=== PATIENT | female | born 1980 ===

== ENCOUNTER 2019-03-31 15:15 | Emergency (ER) | payer OTHER ==
[~2019-03-31] VITALS: Ht 160 cm; Wt 68.5 kg
[2019-03-31] MEDS ORDERED: NKM (15:27)
[2019-03-31] MEDS ORDERED: ALPRAZolam 0.25mg tab ORAL ONE (16:15)
[2019-03-31] MEDS ORDERED: ALPRAZolam 0.5mg tab ORAL ONE (16:15)
[2019-03-31] MEDS ORDERED: ALPRAZOLAM0.25 MG ORAL (16:18)
--- NOTE | 2019-03-31 16:18 | Emergency Room Report ---
History of Present Illness General Chief Complaint: General Complaint Source: Patient Present Illness HPI 38-year-old female presents to the emergency department requesting medication refill for Xanax that she takes for anxiety intermittently and as needed. Patient reports that she has not needed to take some several months however she is under a lot of stress and starting a new job and had severe anxiety this a.m. that she was unable to control on her own. Patient is in the process of establishing herself with a new psychiatrist in this area. Patient denies SI/HI , amanda, delusions, history of previous hospitalizations or PSAs. Patient denies illicit drug use. Patient reports during anxiety attack she feels overwhelmed, emotional and hyperventilates. Patient denies chest pain, palpitations or pain with breathing. Patient denies syncope or loss of consciousness she denies significant past medical history such as cardiac, liver , TBI, diabetes. Patient denies suspicion of at this time she denies fevers or chills she denies recent illnesses/infections. She denies diaphoresis , significant changes in weight or insomnia. Denies new meds or supplements. Patient is requesting small quantity to be used as needed until she follows up. Allergies: Coded Allergies: No Known Allergies (Unverified , 03/31/19) Patient History Past Medical History: see triage record Past Surgical History: none Pertinent Family History: none Last Menstrual Period: Mar 21, 2019 Now: No Reviewed Nursing Documentation: PMH: Agreed; PSxH: Agreed Nursing Documentation-PMH Past Medical History: No History, Except For Hx Cardiac Problems: No - anxiety Review of Systems All Other Systems: negative except mentioned in HPI Physical Exam Vital Signs Date Time Temp Pulse Resp B/P (MAP) Pulse Ox O2 Delivery O2 Flow Rate FiO2 03/31/19 15:23 98.2 79 17 118/68 (85) 96 Room Air Sp02 EP Interpretation: reviewed, normal General Appearance: no apparent distress, alert, GCS 15, non-toxic Head: normocephalic, atraumatic Eyes: bilateral eye normal inspection, bilateral eye PERRL ENT: hearing grossly normal, normal voice Neck: full range of motion Respiratory: lungs clear, normal breath sounds, no respiratory distress, no accessory muscle use, no wheezing, speaking full sentences Cardiovascular #1: regular rate, rhythm, no edema, normal capillary refill Gastrointestinal: non tender, soft, non-distended, no guarding Musculoskeletal: gait/station normal, normal range of motion, non-tender Neurologic: alert, oriented x3, responsive, motor strength/tone normal, sensory intact, normal gait, speech normal, grossly normal Psychiatric: judgement/insight normal, no suicidal/homicidal ideation, no delusions, anxious Lymphatic: no adenopathy Medical Decision Making PA Attestation Dr. Green is my supervising Physician whom patient management has been discussed with. Diagnostic Impression: Primary Impression: Medication refill ER Course 38-year-old female presents to the emergency department requesting medication refill for Xanax that she takes for anxiety intermittently and as needed. Patient reports that she has not needed to take some several months however she is under a lot of stress and starting a new job and had severe anxiety this a.m. that she was unable to control on her own. Patient is in the process of establishing herself with a new psychiatrist in this area. Patient denies SI/HI , amanda, delusions, history of previous hospitalizations or PSAs. Patient denies illicit drug use. Patient reports during anxiety attack she feels overwhelmed, emotional and hyperventilates. Patient denies chest pain, palpitations or pain with breathing. Patient denies syncope or loss of consciousness she denies significant past medical history such as cardiac, liver , TBI, diabetes. Patient denies suspicion of at this time she denies fevers or chills she denies recent illnesses/infections. She denies diaphoresis , significant changes in weight or insomnia. Denies new meds or supplements. Patient is requesting small quantity to be used as needed until she follows up. Ddx considered but are not limited to: drug seeking, OD, anxiety, hyperthyroid, illicit drug use, OR/PE, hyperventilation syndrome just to name a few Vital signs: are WNL, pt. is afebrile H&PE are most consistent with need for medication refill. Patient is nontoxic in appearance and does appear mildly anxious during her ED visit. ORDERS: none required at this time, the diagnosis is clinical ED INTERVENTIONS: --0.25 mg Xanax p.o. Review of this patient's cures report does show that several months ago she was somewhat regularly receiving small quantities of Xanax by the same provider. She has no recent filled prescriptions for Xanax in the last 3 months. -I do not identify an emergent condition at this time. With current presentation , pt. is stable for close outpatient follow up and conservative treatment. D/ w pt. to return promptly to ED with worsening or new symptoms.- Pt. verbalizes' understanding and agreement with proposed treatment plan. I discussed with this patient that she will be receiving [facility] mental health urgent care resource information so that she can receive further medication management/refills as needed and performed by a psychiatrist. DISCHARGE: At this time pt. is stable for d/c to home. Will provide printed patient care instructions, and any necessary prescriptions. Care plan and follow up instructions have been discussed with the patient prior to discharge. Last Vital Signs Date Time Temp Pulse Resp B/P (MAP) Pulse Ox O2 Delivery O2 Flow Rate FiO2 03/31/19 15:23 98.2 79 17 118/68 (85) 96 Room Air Disposition: HOME, SELF-CARE Condition: Stable Scripts Alprazolam* (XANAX*) 0.25 Mg Tablet 0.25 MG ORAL TID for 2 Days, #6 TAB Prov: Maribel Bellamy 03/31/19 Departure Forms: Return to Work Return to Work Date: Apr 01, 2019 Work Restrictions: None Other Restrictions: Please excuse 03/31/19 Return to Full Activity: Apr 01, 2019 Patient Instructions: Generalized Anxiety Disorder Additional Instructions: Take medications as directed. Follow up with a Mental Health Specialist/ Psychiatrist in 3 days, even if your symptoms have resolved. --Please review [facility] resource information provided Return sooner to ED if new symptoms occur, or current symptoms become worse. - Please note that this Emergency Department Report was dictated using [employer] analyst technology software, occasionally this can lead to erroneous entry secondary to interpretation by the dictation equipment. Maribel Bellamy Mar 31, 2019 16:18
[2019-03-31 16:50] VITALS: BP 118/68
== END 2019-03-31 16:35 | disposition home or self-care (01) ==
LOC: EMR 15:49
DX: Z76.0 Encounter for issue of repeat prescription (principal); F41.9 Anxiety disorder, unspecified
CPT/HCPCS: 99282